=== PATIENT | male | born 1950 | race African-American/Black ===

== ENCOUNTER 2017-01-13 12:28 | Observation (INO) ==
[2017-01-13 15:15] LABS: Basophils % 0.2 % (0.0-0.8); Hematocrit 41.6 VOL% (42.0-52.0); Hemoglobin 14.4 GM/DL (14.0-18.0); Immature Granulocytes % 0.5 %; Immature Granulocytes Absolute 0.06 #; Lymphocytes # 0.7 10*3/uL (1.4-4.0); Lymphocytes % 5.5 % (21.2-54.2); Mean Corpuscular HGB Conc 34.6 GM/DL (32-36); Mean Corpuscular Hemoglobin 30 PG (27-34); Mean Corpuscular Volume 85.6 FL (87-102); Mean Platelet Volume 9.6 FL (9.6-12.0); Neutrophils % 85.8 % (38.7-73.9); Platelet Count 195 T/CUMM (130-400); Red Blood Count 4.86 MC/CUMM (3.8-5.5); Red Cell Distribution Width 13.5 % (9.3-17.3); White Blood Count 12.8 T/CUMM (4-12)
[2017-01-13 15:53] LABS: Apearance,Urine Slightly Hazy (Clear); Bilirubin,Urine Negative (Negative); Blood, Urine Small mg/dL (Negative); Glucose,Urine (UA) 50 mg/dL (Negative); Ketones,Urine 5 mg/dL (Negative); Mucus,Urine Occasional /LPF (Occasional); Nitrite,Urine Negative (Negative); Protein,Urine >=500 MG/DL; RBC,Urine 7 /HPF (0-4); Squamous Epithelial Cell,Urine Occasional /HPF (0-10); Urine Color Yellow (Yellow); Urine Specific Gravity 1.026 (1.001-1.035); WBC,Urine 3 /HPF (0-6)
[2017-01-13 16:00] LABS: Albumin 2.7 G/DL (3.4-5.0); Bilirubin,Total 0.5 MG/DL (0.2-1.0); Calcium 8.7 MG/DL (8.5-10.1); Osmolality,Calculated 286.5 MOS/KG (273-304); Potassium 4.2 MMOL/L (3.5-5.1); Total Protein 6.2 G/DL (6.4-8.3)
--- NOTE | 2017-01-13 16:27 | XRay Report ---
History: Shortness of breath. Fever. Chills Date: 01/13/2017 Study: Chest x-ray PA and lateral Comparison exam: No previous chest are available The cardiac silhouette is not enlarged. There is no mediastinal mass. The pulmonary vasculature is not engorged. There is no pleural effusion. The lungs are well-expanded and clear. There is an 8 mm nodular density over the left lower lung which could represent nipple shadow or pulmonary nodule. There is no pleural effusion. There is mild to moderate thoracic spondylosis. Impression: Nipple shadow versus pulmonary nodule over left lower lung. Recommend follow-up chest x-ray with nipple markers in place. No acute process otherwise PROCEDURE INTERPRETED AT [facility] DEPARTMENT OF RADIOLOGY Final Report Signed by: Dr. Radha Ledezma
[2017-01-13] MEDS ORDERED: SODIUM CHLORIDE 0.9% 1,000 ML IV STA (16:40)
--- NOTE | 2017-01-13 17:08 | Hospitalist History & Physical ---
Assessment and Plan (1) Fever Status: Acute Current Visit: Yes (2) Cough Status: Acute Current Visit: Yes (3) Leukocytosis Status: Acute Current Visit: Yes (4) Dehydration Status: Acute Current Visit: Yes (5) Acute kidney injury Status: Acute Assessment and plan: We will admit patient our service. Unsure about his baseline BUN and creatinine. Can try to get some labs from Dr. Rodarte's office. We will give him IV hydration. He might have a bronchitis with a clear chest x-ray. I will set him up with some antibiotics and breathing treatments and reevaluate his labs tomorrow. Current Visit: Yes History of Present Illness Chief complaint: Cough fever and chills History of present illness: Mr. Elise is a 66 year old male with past medical history significant for increased cholesterol, diabetes and hypertension who is his normal state of health until this weekend. Apparently patient had been doing some work outside.. He has developed a dry cough since that time. His been complaining about fever chills and a frontal headache. Patient's had decreased desire to eat or drink. Son wanted to come up for further evaluation to the hospital. I was consulted to admit him to the emergency room. Home Medications Medication Instructions Recorded Confirmed Type Finasteride [Proscar] 5 mg PO BEDTIME #30 tablet 02/23/16 03/15/16 Rx Tamsulosin [Flomax] 0.4 mg PO BEDTIME #30 capsule 02/23/16 03/15/16 Rx Dicyclomine HCl 10 mg PO TID 03/15/16 03/15/16 History Meloxicam [Mobic] 7.5 mg PO DAILY 03/15/16 03/15/16 History Metformin HCl 1,000 mg PO BID 03/15/16 03/15/16 History Simvastatin [Zocor] 20 mg PO BEDTIME 03/15/16 03/15/16 History glipiZIDE [Glipizide] 10 mg PO BID 03/15/16 03/15/16 History Allergies Allergy/AdvReac Type Severity Reaction Status Date / Time No Known Allergies Allergy Verified 01/13/17 12:38 Medical,Surgical,& Family Hx - Medical History Cardio: History of: Hypertension HEENT: History of: Ear Problem (NEEDS HEARING AID) Endocrine: History of: Diabetes Mellitus (NIDDM), Dyslipidemia Genitourinary: History of: Prostate Problems - Surgical History Orthopedic Surgeries: Surgical HX of;: Orthopedic Surgery - Family History Family History: Reports;: Family Diabetes - Social History Smoking Status: Current every day smoker Frequency of Alcohol Use: None Type of Drug Use: None 12 point system: reviewed and no additional remarkable complaints except as stated Exam - Constitutional Vitals: Period Temp Pulse Resp BP Sys/Castellano Pulse Ox Last 24 Hr 98.5 F-98.5 F 87-93 18-20 139-198/75-104 98-100 General appearance: no acute distress, other (Patient is a little sleepy) - Head Head exam: Present: normal inspection - Eye Eye exam: Present: EOMI Pupils: Present: GIOVANY - ENT ENT exam: Present: normal exam - Neck Neck exam: Present: normal inspection - Respiratory Respiratory exam: Present: clear to auscultation bilaterally - Cardiovascular Cardiovascular exam: Present: regular rate and rhythm - GI/Abdominal GI/Abdominal exam: Present: normal bowel sounds - Extremities Exam Extremities exam: Present: normal inspection - Back Exam Back exam: Present: normal inspection - Neurological Exam Neurological exam: Present: alert, other (Patient has no nuchal rigidity) - Psychiatric Psychiatric exam: Present: normal affect - Skin Skin exam: Present: normal color Results - Labs CBC & BMP: 01/13/17 15:03 01/13/17 15:03
[2017-01-13] MEDS ORDERED: DEXTROSE 50% 25 GM/50 ML SYRINGE IV PRN (17:14)
[2017-01-13] MEDS ORDERED: GLUCAGON 1 MG VIAL IM PRN ×2 (17:14)
[2017-01-13] MEDS ORDERED: DEXTROSE 50% 25 GM/50 ML VIAL IV PRN (17:14)
[2017-01-13] MEDS ORDERED: ONDANSETRON 4 MG/2 ML VIAL IV PRN (17:14)
[2017-01-13] MEDS ORDERED: ACETAMINOPHEN 325 MG TABLET PO PRN (17:14)
[2017-01-13] MEDS ORDERED: ALBUTEROL/IPRATROPIUM 3 ML NEB RESP TX PRN (17:19)
--- NOTE | 2017-01-13 17:46 | Emergency Department Note ---
Alvina Blank Rolonda, am scribing for, and in the presence of, Alin Soriano MD 17: 38. Bo Blank Micah, MD, personally performed the services described in this documentation, ascribed by Leigh Tinsley in my presence, and it is both accurate and complete [id number] . Arrival - Arrival Chief Complaint: Weakness Stated Complaint: No appetite, weakness, cold chills, fever ED Nursing Triage Note: PT C/O GENERALIZED WEAKESS AND FATIGUE, FEVER, HEADACHE , AND DECREASED APPETITE SINCE FRIDAY. ACCU CHECK AT TRIAGE 178MG/DL. PT EASILY DOZING OFF AT TRIAGE. Mode of Arrival: Wheelchair Limitations: No Limitations Source: Patient, Family (son), Old Records Reviewed, RN Notes Reviewed - History of Present Illness HPI Narrative: Pt is a 66 y/o male who presents to the ED for further evaluation of generalized weakness with an onset of x1 week. Pt has a PMHx of DM and HTN. Pt states that he started "getting sick" and felt "cold" last week. He states that he has been shaking, has no appepitie, and no energy to walk. Son stated that pt just lays in the bed all day but he finally got pt to come to ED. Pt confirms fever, cough, NIETO, chills but denies swelling in lower extremities. He is f/u by Dr. Rodarte. No other complaint/pain in ED. Onset (ago): week(s) Consistency: constant Severity: moderate Severity scale (1-10): 4 Allergies/Adverse Reactions: Allergies Allergy/AdvReac Type Severity Reaction Status Date / Time No Known Allergies Allergy Verified 01/13/17 12:38 Home Medications: Home Medications Medication Instructions Recorded Confirmed Type Finasteride [Proscar] 5 mg PO BEDTIME #30 tablet 02/23/16 03/15/16 Rx Tamsulosin [Flomax] 0.4 mg PO BEDTIME #30 capsule 02/23/16 03/15/16 Rx Dicyclomine HCl 10 mg PO TID 03/15/16 03/15/16 History Meloxicam [Mobic] 7.5 mg PO DAILY 03/15/16 03/15/16 History Metformin HCl 1,000 mg PO BID 03/15/16 03/15/16 History Simvastatin [Zocor] 20 mg PO BEDTIME 03/15/16 03/15/16 History glipiZIDE [Glipizide] 10 mg PO BID 03/15/16 03/15/16 History Review of System - Review of System 12 point system: reviewed and no additional remarkable complaints except as stated - Review of System Constitutional: Present: chills, fever, weakness, other (no appepite) Eyes: Absent: pain Head/Ears/Nose/Throat: Absent: earache Respiratory: Present: cough Cardiovascular: Absent: chest pain Gastrointestinal: Absent: abdominal pain Genitourinary male: Absent: dysuria Musculoskeletal: Absent: arm pain Skin: Absent: rash Neurological: Present: headache Psychiatric: Absent: anxiety Endocrine: Absent: cold intolerance Hematological/Lymphatic: Absent: easy bleeding Allergic/Immunologic: Absent: facial swelling Medical,Surgical,& Family Hx - Medical History Cardio: History of: Hypertension HEENT: History of: Ear Problem (NEEDS HEARING AID) Endocrine: History of: Diabetes Mellitus (NIDDM), Dyslipidemia Genitourinary: History of: Prostate Problems - Social History Smoking Status: Current every day smoker Frequency of Alcohol Use: None Type of Drug Use: None Exam Vital Signs: Vital Signs Temperature 98.5 F 01/13/17 16:34 Pulse Rate 87 01/13/17 16:34 Respiratory Rate 18 01/13/17 16:34 Blood Pressure 139/75 01/13/17 16:34 O2 Sat by Pulse Oximetry 100 01/13/17 15:35 - General General appearance: alert, in no apparent distress - Head Head exam: Present: atraumatic, normocephalic - Eye Eye exam: Present: PERRL, EOMI. Absent: scleral icterus ([place] sclera) - ENT ENT exam: Present: mucous membranes dry, TM's normal bilaterally - Neck Neck exam: Present: normal inspection, tenderness - Chest Chest inspection: Present: symmetric chest wall rise - Respiratory Respiratory exam: Present: normal lung sounds bilaterally. Absent: rhonchi - Cardiovascular Cardiovascular exam: Present: regular rate, irregular rhythm, normal heart sounds - Abdominal Exam Abdominal exam: Present: soft, diminished bowel sounds. Absent: tenderness - Extremities Exam Extremities exam: Present: full ROM. Absent: tenderness - Back Exam Back exam: Present: full ROM. Absent: tenderness - Neurological Exam Neurological exam: Present: alert, oriented X3, CN II-XII intact - Psychiatric Psychiatric exam: Present: normal affect, normal mood - Skin Skin exam: Present: warm, dry, intact, normal color. Absent: rash Course Course Narrative: Patient given 1 L normal saline bolus in the ED. Hospitalists consulted for admission secondary to elevated creatinine and unknown baseline. Results - Labs CBC & BMP: 01/13/17 15:03 01/13/17 15:03 Lab Results: I have reviewed the patients labs Labs: Laboratory Tests 01/13/17 15:03 WBC 12.8 H RBC 4.86 Hgb 14.4 Hct 41.6 L MCV 85.6 L Plt Count 195 Neut % (Auto) 85.8 H Lymph % (Auto) 5.5 L Neut # (Auto) 11.0 H Lymph # (Auto) 0.7 L Gaston # (Auto) 1.0 H - Diagnostic Findings Procedure: Chest x-ray: report reviewed by me (No acute process. Possible pulmonary nodule.) Disposition Clinical Impression: Acute kidney injury, Leukocytosis Case discussed with: patient, patient's family Disposition: Still a Patient Condition: Stable Time of Disposition: 17:00
[2017-01-13] MEDS: LEVOFLOXACIN INJ 500 MG in PREMIX 1 EACH IV SCH (19:01)
[2017-01-13] MEDS: SODIUM CHLORIDE 0.9% 1,000 ML IV SCH (19:01)
[2017-01-13] MEDS: INSULIN REGULAR 100 UNIT/ML SUBCUT SCH (20:49)
[2017-01-13] MEDS: ENOXAPARIN 40 MG/0.4 ML SYRINGE SUBCUT SCH (20:50)
[2017-01-14] MEDS ORDERED: amLODIPine 5 MG TABLET PO ONE (04:58)
[2017-01-14 06:24] LABS: Basophils % 0.1 % (0.0-0.8); Hematocrit 35.8 VOL% (42.0-52.0); Immature Granulocytes % 0.5 %; Immature Granulocytes Absolute 0.05 #; Lymphocytes # 0.8 10*3/uL (1.4-4.0); Lymphocytes % 7.2 % (21.2-54.2); Mean Corpuscular HGB Conc 34.6 GM/DL (32-36); Mean Corpuscular Hemoglobin 30 PG (27-34); Mean Corpuscular Volume 85.2 FL (87-102); Mean Platelet Volume 9.7 FL (9.6-12.0); Monocytes # 0.8 10*3/uL (0.11-0.8); Monocytes % 7.3 % (1.7-12.7); Neutrophils % 84.9 % (38.7-73.9); Platelet Count 178 T/CUMM (130-400); Red Cell Distribution Width 13.3 % (9.3-17.3); White Blood Count 10.7 T/CUMM (4-12)
[2017-01-14 06:52] LABS: Hemoglobin 12.4 GM/DL (14.0-18.0)
[2017-01-14 06:56] LABS: Albumin 2.3 G/DL (3.4-5.0); Bilirubin,Total 0.9 MG/DL (0.2-1.0); Calcium 8.3 MG/DL (8.5-10.1); Osmolality,Calculated 278.8 MOS/KG (273-304); Potassium 3.5 MMOL/L (3.5-5.1); Total Protein 5.3 G/DL (6.4-8.3)
--- NOTE | 2017-01-14 08:23 | Hospitalist Progress Note ---
Assessment and Plan (1) Bronchitis, acute Status: Acute Assessment and plan: He appears improved this morning. He is being treated with intravenous levofloxacin and albuterol ipratropium nebulizer therapy. I will start him on prednisone. Current Visit: Yes (2) Acute kidney injury Status: Acute Assessment and plan: His BUN and creatinine were 26 and 1.8 yesterday on admission. They have decreased to 19 and 1.2 respectively today. I will continue intravenous normal saline. Current Visit: Yes (3) Diabetes mellitus Status: Acute Assessment and plan: Is being treated with regular insulin sliding scale coverage. His glucose this morning is 170. I will start him on metformin. Current Visit: Yes Qualifiers: Diabetes mellitus type: type 2 Diabetes mellitus complication status: without complication Hospitalist: Subjective Interval history: Patient was admitted to the hospital last night with acute bronchitis and acute renal failure. He passed an uneventful night. He is presently resting comfortably. He is being treated with infusion of intravenous normal saline for his acute renal failure and intravenous levofloxacin for his acute bronchitis. Exam - Constitutional Vitals: Period Temp Pulse Resp BP Sys/Castellano Pulse Ox Last 24 Hr 97.4 F-101.3 F 84-94 18-22 139-198/75-108 96-100 General appearance: no acute distress - Head Head exam: Present: normal inspection - Neck Neck exam: Present: normal inspection - Respiratory Respiratory exam: Present: clear to auscultation bilaterally - Cardiovascular Cardiovascular exam: Present: regular rate and rhythm - GI/Abdominal GI/Abdominal exam: Present: normal bowel sounds, soft, other (Nontender with no palpable masses or hepatosplenomegaly.) - Extremities Exam Extremities exam: Present: normal inspection - Neurological Exam Neurological exam: Present: alert, oriented X3 - Skin Skin exam: Present: normal color, warm, intact Results - Labs CBC & BMP: 01/14/17 06:01 01/14/17 06:01
--- NOTE | 2017-01-14 09:12 | XRay Report ---
XR chest 1V portable Indication: Cough Comparison: 13 January 2017 Findings: The heart and mediastinum are normal in size and configuration. The pulmonary vascularity is normal in caliber. Linear density is present in the right lung base slightly increased. No other lung infiltrates, effusions, pneumothorax or other abnormality is demonstrated. Impression: Linear density present right lung base, slightly increased may be atelectasis. PROCEDURE INTERPRETED AT [facility] DEPARTMENT OF RADIOLOGY Final Report Signed by: Dr. Jose Zhang
[2017-01-14] MEDS: INSULIN REGULAR 100 UNIT/ML SUBCUT SCH ×4 (09:53→21:20)
[2017-01-14] MEDS: SODIUM CHLORIDE 0.9% 1,000 ML IV SCH (09:53)
[2017-01-14] MEDS: DICYCLOMINE 10 MG CAPSULE PO SCH ×3 (09:54→21:20)
[2017-01-14] MEDS: PANTOPRAZOLE 40 MG TABLET PO SCH (09:54)
[2017-01-14] MEDS: metFORMIN 500 MG TABLET PO SCH ×2 (09:54→21:20)
[2017-01-14] MEDS: amLODIPine 5 MG TABLET PO SCH (09:54)
[2017-01-14] MEDS: predniSONE 20 MG TABLET PO SCH (09:54)
[2017-01-14] MEDS: glipiZIDE 10 MG TABLET PO SCH ×2 (09:54→21:20)
[2017-01-14] MEDS: LEVOFLOXACIN INJ 500 MG in PREMIX 1 EACH IV SCH (18:33)
[2017-01-14] MEDS: ENOXAPARIN 40 MG/0.4 ML SYRINGE SUBCUT SCH (18:34)
[2017-01-14] MEDS ORDERED: SIMVASTATIN 20 MG TABLET PO SCH (21:00)
[2017-01-14] MEDS ORDERED: TAMSULOSIN 0.4 MG CAPSULE PO SCH (21:00)
[2017-01-14] MEDS ORDERED: FINASTERIDE 5 MG TABLET PO SCH (21:00)
[2017-01-15] MEDS: SODIUM CHLORIDE 0.9% 1,000 ML IV SCH (00:24)
[2017-01-15 06:49] LABS: Basophils % 0.1 % (0.0-0.8); Hemoglobin 11.6 GM/DL (14.0-18.0); Immature Granulocytes % 0.7 %; Immature Granulocytes Absolute 0.05 #; Lymphocytes # 0.8 10*3/uL (1.4-4.0); Lymphocytes % 11.2 % (21.2-54.2); Mean Corpuscular HGB Conc 35.2 GM/DL (32-36); Mean Corpuscular Hemoglobin 30 PG (27-34); Mean Platelet Volume 9.8 FL (9.6-12.0); Monocytes # 0.5 10*3/uL (0.11-0.8); Monocytes % 7.8 % (1.7-12.7); Neutrophils # 5.5 10*3/uL (1.4-7.4); Neutrophils % 80.2 % (38.7-73.9); Platelet Count 191 T/CUMM (130-400); Red Blood Count 3.93 MC/CUMM (3.8-5.5); Red Cell Distribution Width 13.1 % (9.3-17.3); White Blood Count 6.9 T/CUMM (4-12)
[2017-01-15 07:14] LABS: Calcium 8.1 MG/DL (8.5-10.1); Osmolality,Calculated 275.5 MOS/KG (273-304)
[2017-01-15] MEDS ORDERED: metFORMIN 500 MG TABLET PO SCH (08:00)
[2017-01-15] MEDS: metFORMIN 500 MG TABLET PO SCH (10:10)
[2017-01-15] MEDS: glipiZIDE 10 MG TABLET PO SCH (10:10)
[2017-01-15] MEDS: DICYCLOMINE 10 MG CAPSULE PO SCH (10:10)
[2017-01-15] MEDS: amLODIPine 5 MG TABLET PO SCH (10:11)
[2017-01-15] MEDS: predniSONE 20 MG TABLET PO SCH (10:11)
[2017-01-15] MEDS: PANTOPRAZOLE 40 MG TABLET PO SCH (10:11)
--- NOTE | 2017-01-15 10:51 | Discharge Summary ---
Hospital Course - Hospital Course Hospital Course: Mr. Elise is a 66 year old male with past medical history significant for increased cholesterol, diabetes and hypertension who is his normal state of health until this weekend. Apparently patient had been doing some work outside.. He has developed a dry cough since that time. His been complaining about fever chills and a frontal headache. Patient's had decreased desire to eat or drink. Son wanted to come up for further evaluation to the hospital. Mr. Elise was admitted to the hospital with acute bronchitis, dehydration, and acute kidney injury secondary to dehydration. Admission laboratory testing demonstrated him to have BUN and creatinine of 19 and 1.2 respectively. He was treated in the hospital with intravenous sodium chloride 0.9% intravenous infusion, intravenous levofloxacin, intravenous methylprednisolone, and albuterol ipratropium nebulizer therapy. He did well in the hospital with significant improvement of his cough and breathing. At the time of his discharge laboratory testing demonstrated his BUN and creatinine to be 15 and 1.1 respectively. The time of discharge he was hypokalemic with potassium of 3.0. He has been begun on potassium chloride 40 mEq p.o. daily. At the time of his discharge he was comfortable with no significant complaints. Diagnosis - Discharge Diagnosis (1) Bronchitis, acute Status: Acute (2) Acute kidney injury Status: Acute (3) Diabetes mellitus Status: Chronic (4) Hypokalemia Status: Acute (5) Dehydration Status: Acute Discharge Plan - Discharge Data Disposition: Disch To Home/Self Care Condition at Discharge: Stable Discharge Diet: advance to your usual diet Activity: resume usual activities as tolerated - Discharge Medications New Potassium Chloride Cap/Tab [K Dur] 40 meq PO DAILY #14 tablet Tamsulosin [Flomax] 0.4 mg PO BEDTIME capsule amLODIPine [Norvasc] 5 mg PO DAILY #30 tablet Dicyclomine Cap/Tab [Bentyl Cap/Tab] 10 mg PO TID capsule Finasteride [Proscar] 5 mg PO BEDTIME tablet Continue glipiZIDE [Glipizide] 10 mg PO BID Simvastatin [Zocor] 20 mg PO BEDTIME Meloxicam [Mobic] 15 mg PO DAILY Metformin HCl 1,000 mg PO BID Sildenafil Citrate [Viagra] 100 mg PO DAILY PRN PRN Reason: Erectile Dysfunction - Follow Up or Referral - Forms/Instructions Exam - Constitutional Vitals: Period Temp Pulse Resp BP Sys/Castellano Pulse Ox Last 24 Hr 97.6 F-100.4 F 81-96 18-24 140-187/70-102 97-100 Discharge Results Procedures and tests throughout hospitalization: Pending Orders 01/13/17 19:47 Blood Culture Stat 01/16/17 04:00 Basic Metabolic Panel IN AM Labs on day of discharge: Labs from last 24 hours 01/15/17 01/15/17 01/15/17 07:02 05:38 05:38 WBC 6.9 D RBC 3.93 Hgb 11.6 L Hct 33.0 L MCV 84.0 L MCH 30 MCHC 35.2 RDW 13.1 Plt Count 191 MPV 9.8 Neut % (Auto) 80.2 H Lymph % (Auto) 11.2 L Sargent % (Auto) 7.8 Eos % (Auto) 0.0 Baso % (Auto) 0.1 Neut # (Auto) 5.5 Lymph # (Auto) 0.8 L Sargent # (Auto) 0.5 Eos # (Auto) 0.0 Baso # (Auto) 0.0 Immature Gran % 0.7 Nucleated RBC % 0.0 Immature Gran # 0.05 Nucleated RBCs # 0.00 Immature Plt Fraction 0.0 Sodium 139 Potassium 3.0 L Chloride 103 Carbon Dioxide 31 Anion Gap 8.0 BUN 15 Creatinine 1.10 GFR Calculation 91 BUN/Creatinine Ratio 13.00 Glucose 60 L POC Glucose 94 Calculated Osmolality 275.5 Calcium 8.1 L 01/14/17 01/14/17 01/14/17 20:28 15:08 10:53 WBC RBC Hgb Hct MCV MCH MCHC RDW Plt Count MPV Neut % (Auto) Lymph % (Auto) Sargent % (Auto) Eos % (Auto) Baso % (Auto) Neut # (Auto) Lymph # (Auto) Sargent # (Auto) Eos # (Auto) Baso # (Auto) Immature Gran % Nucleated RBC % Immature Gran # Nucleated RBCs # Immature Plt Fraction Sodium Potassium Chloride Carbon Dioxide Anion Gap BUN Creatinine GFR Calculation BUN/Creatinine Ratio Glucose POC Glucose 108 H 129 H 238 H Calculated Osmolality Calcium Preliminary micro results at discharge 01/13/17 19:47 Blood Culture - Preliminary Blood No growth at 1 day 01/13/17 19:47 Blood Culture - Preliminary Blood No growth at 1 day DS: Provider Date of admission: 01/13/17 17:14 Primary care physician: . No PCP Attending physician on admission: Bello Phillips MD Discharging clinician: Devon Suazo
[2017-01-15] MEDS: INSULIN REGULAR 100 UNIT/ML SUBCUT SCH ×2 (11:38→14:35)
[2017-01-15 12:06] VITALS: BP 160/87
[2017-01-16] MEDS ORDERED: POTASSIUM CHLORIDE 20 MEQ TABLET PO SCH (09:00)
== END 2017-01-15 13:27 | disposition home or self-care (01) ==
LOC: N.ED 12:28 → N.EDINP 12:28 → SUATTDRO 17:14 → N.2E 18:15
PROVIDERS: ADMIT Internal Medicine

== ENCOUNTER 2019-08-06 17:28 | Inpatient (IN) ==
[2019-08-06] MEDS ORDERED: PIPERACILLIN/TAZOBACTAM 3,375 MG in SODIUM CHLORIDE 0.9% 100 ML IV STA (17:54)
[2019-08-06] MEDS ORDERED: VANCOMYCIN INJ 1,000 MG in SODIUM CHLORIDE 0.9% 250 ML IV STA (17:54)
[2019-08-06] MEDS ORDERED: SODIUM CHLORIDE 0.9% 1,000 ML IV STA ×2 (17:55→19:23)
[2019-08-06] MEDS ORDERED: TERBUTALINE 1 MG/1 ML VIAL ONE (17:56)
[2019-08-06 18:33] LABS: Basophils % 0.2 % (0.0-0.8); Hematocrit 38.5 VOL% (42.0-52.0); Hemoglobin 12.6 GM/DL (14.0-18.0); Immature Granulocytes % 2.1 %; Immature Granulocytes Absolute 0.14 #; Lymphocytes # 0.1 10*3/uL (1.4-4.0); Lymphocytes % 1.7 % (21.2-54.2); Mean Corpuscular HGB Conc 32.7 GM/DL (32-36); Mean Corpuscular Volume 89.1 FL (87-102); Mean Platelet Volume 9.8 FL (9.6-12.0); Monocytes % 0.8 % (1.7-12.7); Neutrophils % 95.2 % (38.7-73.9); Platelet Count 164 T/CUMM (130-400); Red Blood Count 4.32 MC/CUMM (3.8-5.5); White Blood Count 6.6 T/CUMM (4-12)
[2019-08-06 18:52] LABS: INR 1.1; PT Patient Result 11.7 SECS (9.8-11.9); Partial Thromboplastin Time 24.9 SECS (23.9-33.8)
[2019-08-06 19:05] LABS: Band Neutrophils 14 % (0-10); Lymphocytes 2 % (20-55); Platelet Estimate Normal; Poikilocytosis 2+; Polychromasia Slight; Reactive Lymphocytes Slight; Segmented Neutrophils 83 % (50-85); Total Cells Counted 100
[2019-08-06 19:06] LABS: Burr Cells 2+
[2019-08-06 19:12] LABS: Alanine Aminotransferase 18 U/L (16-61); Alkaline Phosphatase 160 U/L (45-117); Aspartate Amino Transferase 19 U/L (0-37); Blood Urea Nitrogen 48 MG/DL (7-18); Calcium 7.9 MG/DL (8.5-10.1); Estimated Glom Filtration Rate 12 ML/MIN; Ferritin 130.2 ng/ml (26-388); Glucose 311 MG/DL (74-106); Osmolality,Calculated 292.2 MOS/KG (273-304); Total Protein 6.3 G/DL (6.4-8.3)
[2019-08-06 19:15] LABS: Troponin I 0.976 NG/ML (0.00-0.045)
[2019-08-06 19:24] LABS: Amorphous Crystals,Urine Occasional /HPF (Few); Apearance,Urine CLOUDY (Clear); Bacteria,Urine Occasional /HPF (Few); Bilirubin,Urine Negative (Negative); Blood, Urine Moderate mg/dL (Negative); Glucose,Urine (UA) >=500 mg/dL (Negative); Ketones,Urine Negative (Negative); Mucus,Urine Occasional /LPF (Occasional); Nitrite,Urine Negative (Negative); Protein,Urine 100 MG/DL; RBC,Urine 20 /HPF (0-4); Squamous Epithelial Cell,Urine Occasional /HPF (0-10); Urine Color Yellow (Yellow); Urine Specific Gravity 1.012 (1.001-1.035); Urine Urobilinogen < 2.0 EU/DL (0.2-1.0); WBC,Urine 451 /HPF (0-6)
[2019-08-06] MEDS ORDERED: DEXTROSE 50% 25 GM/50 ML VIAL IV PRN (20:17)
[2019-08-06] MEDS ORDERED: GLUCAGON 1 MG VIAL IM PRN (20:17)
[2019-08-06] MEDS ORDERED: ONDANSETRON 4 MG/2 ML VIAL IV PRN (20:17)
[2019-08-06] MEDS ORDERED: guaiFENesin 200 MG/10 ML UDCUP PO PRN (20:23)
[2019-08-06] MEDS ORDERED: cloNIDine 0.1 MG TABLET PO PRN (20:34)
[2019-08-06] MEDS ORDERED: PIPERACILLIN/TAZOBACTAM 3,375 MG in SODIUM CHLORIDE 0.9% 100 ML IV SCH (22:00)
[2019-08-07 05:19] LABS: Basophils % 0.2 % (0.0-0.8); Hematocrit 26.8 VOL% (42.0-52.0); Hemoglobin 8.9 GM/DL (14.0-18.0); Immature Granulocytes % 4.7 %; Lymphocytes # 0.4 10*3/uL (1.4-4.0); Lymphocytes % 2.6 % (21.2-54.2); Mean Corpuscular HGB Conc 33.2 GM/DL (32-36); Mean Corpuscular Volume 87.9 FL (87-102); Monocytes % 6.8 % (1.7-12.7); Neutrophils % 85.7 % (38.7-73.9); Platelet Count 176 T/CUMM (130-400); Red Blood Count 3.05 MC/CUMM (3.8-5.5); Red Cell Distribution Width 14.1 % (9.3-17.3); White Blood Count 14.9 T/CUMM (4-12)
[2019-08-07 05:34] LABS: Calcium 7.7 MG/DL (8.5-10.1); Osmolality,Calculated 293.7 MOS/KG (273-304)
[2019-08-07 05:51] LABS: Band Neutrophils 2 % (0-10); Burr Cells Slight; Hypochromasia Slight; Lymphocytes 4 % (20-55); Ovalocytes Slight; Platelet Estimate Adequate; Segmented Neutrophils 91 % (50-85); Total Cells Counted 100
[2019-08-07] MEDS: INSULIN REGULAR 100 UNIT/ML SUBCUT SCH ×5 (07:42→21:53)
[2019-08-07] MEDS: TERBUTALINE 1 MG/1 ML VIAL SUBCUT SCH (07:45)
[2019-08-07] MEDS ORDERED: BICILLIN LA 1,200,000 UNIT/2 ML SYRINGE IM ONE (09:00)
[2019-08-07] MEDS ORDERED: ENOXAPARIN 30 MG/0.3 ML SYRINGE SUBCUT SCH (09:00)
[2019-08-07] MEDS: PANTOPRAZOLE 40 MG TABLET PO SCH (09:25)
[2019-08-07] MEDS: SODIUM BICARB INJ 150 MEQ in STERILE WATER INJ 850 ML IV SCH ×3 (11:53→22:13)
[2019-08-07] MEDS: cefTRIAXone 1,000 MG in SYRINGE 1 EACH IV SCH (11:54)
[2019-08-07 14:26] LABS: Risk Ratio 3.21; VLDL CHOLESTEROL 36.4 MG/DL
[2019-08-07] MEDS: ASPIRIN EC 81 MG TABLET PO SCH (15:13)
[2019-08-07] MEDS: METOPROLOL TARTRATE 25 MG TABLET PO SCH ×2 (15:15→21:53)
[2019-08-07] MEDS: ENOXAPARIN 80 MG/0.8 ML SYRINGE SUBCUT SCH (15:15)
[2019-08-07] MEDS ORDERED: chlorproMAZINE 25 MG/1 ML AMP IM ONE (15:41)
[2019-08-08 04:45] LABS: Basophils % 0.2 % (0.0-0.8); Eosinophils % 0.1 % (0.00-10.9); Hemoglobin 9.1 GM/DL (14.0-18.0); Immature Granulocytes % 1.4 %; Immature Granulocytes Absolute 0.18 #; Lymphocytes # 0.6 10*3/uL (1.4-4.0); Lymphocytes % 4.7 % (21.2-54.2); Mean Corpuscular HGB Conc 33.7 GM/DL (32-36); Mean Corpuscular Volume 86.5 FL (87-102); Mean Platelet Volume 10.4 FL (9.6-12.0); Monocytes % 11.2 % (1.7-12.7); NRBC # 0.02 10*3/uL; Neutrophils % 82.4 % (38.7-73.9); Platelet Count 184 T/CUMM (130-400); Red Blood Count 3.12 MC/CUMM (3.8-5.5); Red Cell Distribution Width 14.2 % (9.3-17.3); White Blood Count 13.1 T/CUMM (4-12)
[2019-08-08 05:14] LABS: Calcium 7.9 MG/DL (8.5-10.1); Osmolality,Calculated 292.5 MOS/KG (273-304)
[2019-08-08 05:29] LABS: Eosinophils 1 % (0-10); Lymphocytes 6 % (20-55); Metamyelocytes 1 %; Segmented Neutrophils 85 % (50-85); Total Cells Counted 100
[2019-08-08 05:31] LABS: Burr Cells 3+; Platelet Estimate Normal
[2019-08-08] MEDS: SODIUM BICARB INJ 150 MEQ in STERILE WATER INJ 850 ML IV SCH (05:32)
[2019-08-08 05:33] LABS: Ovalocytes 1+
[2019-08-08] MEDS: PANTOPRAZOLE 40 MG TABLET PO SCH (08:00)
[2019-08-08] MEDS: METOPROLOL TARTRATE 25 MG TABLET PO SCH (08:00)
[2019-08-08] MEDS: cefTRIAXone 1,000 MG in SYRINGE 1 EACH IV SCH (08:00)
[2019-08-08] MEDS: ASPIRIN EC 81 MG TABLET PO SCH (08:00)
[2019-08-08] MEDS: INSULIN REGULAR 100 UNIT/ML SUBCUT SCH ×2 (08:31→13:24)
[2019-08-08] MEDS ORDERED: MAGNESIUM SULF RIDER 2 GM in PREMIX 1 EACH IV ONE (08:43)
[2019-08-08 08:58] VITALS: BP 169/78
[2019-08-08] MEDS ORDERED: METOPROLOL TARTRATE 50 MG TABLET PO SCH (11:33)
[2019-08-08] MEDS: ENOXAPARIN 80 MG/0.8 ML SYRINGE SUBCUT SCH (13:25)
[2019-08-08] MEDS ORDERED: ROSUVASTATIN 20 MG TABLET PO SCH (21:00)
== END 2019-08-08 14:02 | disposition home or self-care (01) | DRG 871 ==
LOC: EDBD → EDUNIT# → N.ED 17:28 → N.EDINP 20:17 → N.2W 21:51
PROVIDERS: ADMIT Family Medicine; ATTEND Family Medicine